=== PATIENT | male | born 1970 | race Caucasian/White ===

== ENCOUNTER 2019-02-19 08:22 | Emergency (ER) | payer OTHER ==
--- NOTE | 2019-02-19 08:26 | PDOC ---
History of Present Illness - General Chief Complaint: Injury Stated Complaint: FELL DOWN 3 STEPS INJURED LEFT SHOULDER AND LEFT L Time Seen by Provider: 02/19/19 08:26 - History of Present Illness Initial Comments: 02/19/19 09:25 Chief complaint: Pain left shoulder knee and foot HPI: Immediately [employer], slipped on a broom and fell down 2 stairs, impacting his left shoulder and injuring his left knee and foot. He has pain at all 3 sites, with inability to abduct the left shoulder. Review of systems: Also admits bumping the left parieto-occipital side of his head, but there was no loss of consciousness and he has no pain or headache. He denies pain or injury to the neck, chest, abdomen, spine, pelvis, or other extremities. He denies chest pain, shortness of breath, abdominal pain, nausea , vomiting, diarrhea, visual or focal neurologic symptoms, unsteadiness of gait. Specifically, denies radiation of the pain from his shoulder to his upper arm, forearm, wrist, or hand, denies distal numbness tingling or weakness of the left lower extremity. Denies pain or injury to the hips. Past medical history: Asthma on inhalers. Multiple left knee surgeries with chronic swelling and instability. The knee however is more swollen after his injury today. Otherwise healthy. Social/family history reviewed and noncontributory. Took no medications today Physical exam: Alert and oriented well-developed well-nourished, mild distress due to pain from his injuries, but cheerful and cooperative Head: Small hematoma left parietal occipital scalp, approximately 3 cm in diameter, without abrasion or laceration, depression or other skull defect. It is nontender. PERRLA 4 mm, fundi benign with sharp disc margins and good central venous pulsations. EOMs full without diplopia. Visual larsen intact to confrontation. No decrease in visual acuity with examination and patient inquiry. ENT clear Neck without tenderness or deformity, full range of motion without pain Chest clear with full breath sounds bilaterally. No chest wall or rib cage tenderness or deformity Abdomen soft nontender without mass or organomegaly. No CVAT. Spine and pelvis: No visible or palpable trauma Neurological C2 to 12 intact. Strength full and symmetric. No focal sensory or motor deficits. Mild limp due to left foot injury, but adequately ambulatory. Cerebellar function intact. Extremities: There is tenderness to palpation in the left deltoid area, but no deformity, erythema, warmth, or swelling. Range of motion is limited to approximately 10 degrees of abduction, presumably due to pain. Passive range of motion is a little bit better. Distal pulses are full. No distal sensory or motor deficits. No other visible or palpable trauma to the upper extremity Left knee: Swelling, small effusion, old scars due to multiple surgeries. No erythema or warmth. No deformity. MCL with no stress tenderness but significant laxity. This may be chronic. ACL lacks a firm endpoint. This may be chronic as well Left ankle and foot: Tenderness and mild swelling over the dorsum of the foot, probably tendons. No fifth metatarsal tenderness. No deformities. No swelling tenderness or deformity of the ankle including medial and lateral malleoli. Pulses full. No sensory deficits. Again, no sign of injury to the hip, with full range of motion and no pain, thigh, or calf. Impression: Probable rotator cuff contusion, rule out humeral fracture. No visible or palpable sign of dislocation. Probable knee strain, rule out fracture. Probable foot sprain, rule out fracture. Plan: X-rays, analgesics, and further orthopedic management depending on results. Past History - Past Medical History Allergies/Adverse Reactions: Allergies Allergy/AdvReac Type Severity Reaction Status Date / Time fish derived Allergy Severe Swelling Verified 02/19/19 08:24 morphine Allergy Severe Swelling Verified 02/19/19 08:24 Home Medications: Ambulatory Orders Albuterol 0.083% Nebulizer Raquel [Ventolin 0.083% Nebulizer Soln -] 1 neb NEB PRN PRN 05/14/11 Fluticasone/Salmeterol [Advair 250-50 Diskus] 1 each IH BID 05/14/11 Asthma: Yes Diabetes: Yes - Immunization History Immunization Up to Date: Yes - Psycho Social/Smoking Cessation Hx Smoking Status: Yes Smoking History: Current every day smoker Have you smoked in the past 12 months: Yes Number of Cigarettes Smoked Daily: 10 'Breaking Loose' booklet given: 07/23/14 Hx Alcohol Use: No Drug/Substance Use Hx: No Substance Use Type: None Medical Decision Making - Medical Decision Making 02/19/19 09:46 X-rays were reviewed: Left shoulder: No fracture or dislocation. Probably a rotator cuff injury Left knee: Old arthritic changes, narrow joint space, no acute fractures Left foot: Avulsion fracture dorsum of the foot. Minimally displaced. Sling left arm for 24 to 48 hours, then gentle range of motion to avoid stiffness. Follow-up with orthopedist. Possible physical therapy to avoid frozen shoulder recommended Lester wrap left knee. Ice and anti-inflammatory. Follow-up orthopedist Lester wrap and cast shoe left foot. Partial weightbearing until pain resolves. Follow-up orthopedist within 1 week. Adequately ambulatory, pain improved at discharge with to follow-up as directed. Discharge - Discharge Information Problems reviewed: Yes Clinical Impression/Diagnosis: Fracture, foot Qualifiers: Encounter type: initial encounter Fracture type: closed Laterality: left Qualified Code(s): S92.902A - Unspecified fracture of left foot, initial encounter for closed fracture Shoulder sprain Qualifiers: Encounter type: initial encounter Shoulder sprain type: rotator cuff capsule Laterality: left Qualified Code(s): S43.422A - Sprain of left rotator cuff capsule, initial encounter Knee sprain Qualifiers: Encounter type: initial encounter Involved ligament of knee: unspecified ligament Condition: Stable Disposition: HOME - Admission No - Follow up/Referral - Patient Discharge Instructions Patient Printed Discharge Instructions: DI for Foot Fracture, DI for Shoulder Sprain, DI for Knee Sprain Additional Instructions: Rest ice and ibuprofen as directed. Sling for shoulder and arm, 24 to 48 hours at most, then gentle range of motion stretching to avoid stiffness. See orthopedist and consider physical therapy for optimal shoulder movement. Rest ice and Lester for the left knee Rest ice Lester and cast shoe for the left foot. See orthopedist for follow-up while injuries including fracture within 1 week. - Post Discharge Activity
[2019-02-19 08:35] VITALS: BP 134/94; PULSE 70; TEMP 98.4; BMI 38.6
[2019-02-19] MEDS ORDERED: IBUPROFEN 400 MG TABLET (FP) PO ONE ×2 (08:35→08:36)
== END 2019-02-19 09:58 | disposition home or self-care (01) ==
LOC: FER 08:22
DX: S92.902A Unspecified fracture of left foot, initial encounter for closed fracture (principal); S43.422A Sprain of left rotator cuff capsule, initial encounter; W10.9XXA Fall (on) (from) unspecified stairs and steps, initial encounter; Y93.89 Activity, other specified; Y92.9 Unspecified place or not applicable; Z91.013 Allergy to seafood; Z88.5 Allergy status to narcotic agent; F17.210 Nicotine dependence, cigarettes, uncomplicated; J45.909 Unspecified asthma, uncomplicated; E11.9 Type 2 diabetes mellitus without complications
CPT/HCPCS: 73030-TC-LT-FY; 73560-TC-LT-FY; 73630-TC-LT; 99282-25

== ENCOUNTER 2020-12-08 20:45 | Emergency (ER) | payer OTHER ==
[2020-12-08 21:10] VITALS: BP 145/84; PULSE 72; TEMP 99.7; BMI 37.1
[2020-12-08] MEDS ORDERED: KETOROLAC TROMETHAMINE 60 MG/2 ML VIAL IM ONE (21:30)
[2020-12-08] MEDS ORDERED: diazePAM 5 MG TABLET PO ONE (21:30)
[2020-12-08] MEDS ORDERED: KETOROLAC TROMETHAMINE 60 MG/2 ML VIAL ONE (21:31)
[2020-12-08] MEDS ORDERED: diazePAM 5 MG TABLET ONE (21:32)
[2020-12-08] MEDS ORDERED: predniSONE 20 MG TABLET (UD) PO ONE (22:39)
[2020-12-08] MEDS ORDERED: predniSONE 20 MG TABLET (UD) ONE (22:47)
== END 2020-12-08 23:08 | disposition home or self-care (01) ==
LOC: FER 20:45
PROC: 3E0233Z Introduction of Anti-inflammatory into Muscle, Percutaneous Approach (ICD-10-PCS; principal; 2020-12-08)
DX: M54.5 Low back pain (principal); W01.0XXA Fall on same level from slipping, tripping and stumbling without subsequent striking against object, initial encounter; Y92.002 Bathroom of unspecified non-institutional (private) residence as the place of occurrence of the external cause
CPT/HCPCS: 72070-TC-FY; 72110-TC-FY; 99284-25